=== PATIENT | male | born 1970 | race Caucasian/White ===

== ENCOUNTER 2017-01-01 13:23 | Emergency (ER) | payer MEDICAID ==
[~2017-01-01] VITALS: Ht 188 cm; Wt 113.4 kg
[~2017-01-01 13:23] MED LIST: ALPR0.5T96; HYDR-4100; SIMV10TA6
[2017-01-01 13:41] VITALS: BP_SYST 163
[2017-01-01 13:58] LABS: BILIRUBIN,URINE NEGATIVE (NEGATIVE); BLOOD, URINE 3+ (NEGATIVE); CLARITY/URINE SL CLOUDY (CLEAR); COLOR,URINE YELLOW (YELLOW); GLUCOSE,URINE NEGATIVE (NEGATIVE); KETONES,URINE TRACE (NEGATIVE); LEUKOCYTE ESTERASE ,URINE 1+ (NEGATIVE); NITRITE, URINE NEGATIVE (NEGATIVE); PROTEIN URINE 2+ (NEGATIVE)
[2017-01-01 14:06] LABS: BACTERIA,URINE MODERATE /HPF (None Seen); MUCUS,URINE 1+ /LPF (None Seen); RBC,URINE 20-50 /HPF (0-3)
[2017-01-01 16:30] VITALS: BP_SYST 148
== END 2017-01-01 17:10 | disposition home or self-care (01) ==
LOC: SED 13:23
DX: K59.00 Constipation, unspecified (principal); N20.0 Calculus of kidney; I10 Essential (primary) hypertension; E78.00 Pure hypercholesterolemia, unspecified
CPT/HCPCS: 76770; 81000-TC; 87086; 99285

== ENCOUNTER 2018-02-01 20:31 | Emergency (ER) | payer MEDICAID ==
[~2018-02-01] VITALS: Ht 188 cm; Wt 121.6 kg
[~2018-02-01 20:31] MED LIST changes: +ALPR0.5T; -ALPR0.5T96
[2018-02-01 20:54] VITALS: BP_SYST 164
[2018-02-01 21:41] LABS: BASOPHILS # (AUTO) 0.1 K/uL (0.0-0.2); BASOPHILS % (AUTO) 0.9 % (0.0-2.0); EOSINOPHILS # (AUTO) 0.3 K/uL (0.0-0.4); HEMOGLOBIN 15.9 g/dL (14.0-18.0); LYMPHOCYTES # (AUTO) 2.5 K/uL (1.0-5.5); LYMPHOCYTES % (AUTO) 30.8 % (20.5-51.5); MEAN CORPUSCULAR HEMOGLOBIN 29 pg (27-31); MEAN CORPUSCULAR HGB CONC 33 % (32-36); MEAN CORPUSCULAR VOLUME 88 fL (79.0-98.0); MONOCYTES # (AUTO) 0.7 K/uL (0.0-1.0); MONOCYTES % (AUTO) 8.8 % (1.7-9.3); NEUTROPHILS # (AUTO) 4.4 K/uL (1.8-7.7); NEUTROPHILS % (AUTO) 55.5 % (40.0-70.0); PLATELET COUNT (AUTO) 245 K/uL (130-430); RED BLOOD CELL COUNT(AUTO) 5.48 MIL/uL (4.2-6.2)
[2018-02-01 21:59] LABS: CALCIUM 8.3 mg/dL (8.4-11.0); CREATININE 1.01 mg/dL (0.55-1.30); POTASSIUM 3.9 mmol/L (3.5-5.1)
[2018-02-01 22:05] LABS: ALBUMIN 3.4 g/dL (3.4-4.8); TOTAL BILIRUBIN 0.3 mg/dL (0.0-1.0)
--- NOTE | 2018-02-01 23:09 | NUR ---
Triage re-assessment done, Pt on stable condition, denies chest pain this time. ambulatory
--- NOTE | 2018-02-01 23:25 | NUR ---
Placed in room 8 . Placed on neonatal nurse practitioner, blood pressure machine and pulse oximeter. To gown for exam. Side rails up.
--- NOTE | 2018-02-01 23:30 | NUR ---
Pt came into the ED with complaints of an elevated blood pressure at 165/103 prior to coming into the ED. Pt says that he was given clonidine earlier this evening to help bring down his blood pressure which helped. Denies chest pain, SOB, SMITH, dizziness, n/v/d or fever. HX of hypertension a few years ago but has not seen his primary since today. Denies taking HTN medication. No other complaints/injuries noted.
--- NOTE | 2018-02-01 23:45 | NUR ---
ER at bedside examining patient.
--- NOTE | 2018-02-02 01:00 | NUR ---
Pt resting comfortably in bed. No acute distress.
[2018-02-02] MEDS ORDERED: cloNIDine HCL 0.1 MG TABLET PO ONE (01:45)
[2018-02-02 02:10] VITALS: BP_SYST 151
--- NOTE | 2018-02-02 02:10 | NUR ---
Patient given written and verbal discharge instructions and verbalizes understanding. ER MD discussed with patient the results and treatment provided. Patient in stable condition. ID arm band removed. No Rx given. Patient educated on pain management and to follow up with PMD. Pain Scale 0. Opportunity for questions provided and answered. Medication side effect fact sheet provided.
== END 2018-02-02 02:10 | disposition home or self-care (01) ==
LOC: SED 20:31
DX: I10 Essential (primary) hypertension (principal); E78.00 Pure hypercholesterolemia, unspecified; Z88.5 Allergy status to narcotic agent; Z79.899 Other long term (current) drug therapy; Z87.891 Personal history of nicotine dependence
CPT/HCPCS: 36415; 71045; 80053; 82550-TC; 84484; 85025; 85610-TC; 85730-TC; 93005; 99284